=== PATIENT | female | born 1950 | race African-American/Black ===

== ENCOUNTER 2020-05-12 07:35 | Emergency (ER) | payer OTHER, MEDICAID ==
[~2020-05-12] VITALS: Ht 152.4 cm; Wt 104.8 kg
[2020-05-12 09:39] LABS: Eosinophils % (auto) 1.3 % (0.0-7.0); Lymphocytes % (auto) 28.6 % (10.0-50.0); Monocytes % (auto) 10.5 % (0.0-12.0); White Blood Cell 5.2 10^3/uL (4.4-10.8)
[2020-05-12 09:40] LABS: Basophils # (auto) 0 10 ^3/uL (0-0.2); Basophils % (auto) 0.6 % (0.0-2.0); Eosinophils # (auto) 0.1 10 ^3/uL (0-0.8); Hematocrit 37.5 % (36.0-46.0); Hemoglobin 12.2 g/dL (12.2-16.2); Lymphocytes # (auto) 1.5 10 ^3/uL (0.4-5.4); Mean Corpuscular Hemoglobin 30.2 pg (28.0-32.0); Mean Corpuscular Hgb Conc. 32.4 g/dL (32.0-36.0); Monocytes # (auto) 0.5 10 ^3/uL (0-1.3); Neutrophils # (auto) 3.1 10 ^3/uL (1.6-8.6); Nucleated Red Blood Cells % 0.1 %; Platelet Count (auto) 188 10^3/uL (140-450); Red Blood Cells 4.03 10^6/uL (4.0-5.20); Red Cell Distribution Width 13.9 % (11.8-14.3)
[2020-05-12] MEDS ORDERED: FUROSEMIDE 40 MG/4 ML VIAL IV ONE (09:45)
[2020-05-12 09:55] LABS: INR 0.97 (0.9-1.15); Partial Thromboplastin Time 24.4 sec (23.64-32.05)
[2020-05-12 09:59] LABS: Albumin 3.3 g/dL (3.4-5.0); Anion Gap 6 (5-15); Blood Urea Nitrogen 18 mg/dL (7-18); Carbon Dioxide 28 mmol/L (21-32); Chloride 106 mmol/L (98-107); Glucose 107 mg/dL (74-106); Sodium 140 mmol/L (136-145)
[2020-05-12 10:06] LABS: Alanine Aminotransferase 21 U/L (13-56); Alkaline Phosphatase 75 U/L (45-117); Aspartate Aminotransferase 14 U/L (15-37); BUN/Creatinine Ratio 17.8; Bilirubin, Total 0.3 mg/dL (0.2-1.0); GFR African American 70 mL/min; GFR Non-African American 58 mL/min; Total Protein 7.6 g/dL (6.4-8.2)
[2020-05-12 10:44] LABS: Urine Bacteria NONE SEEN /hpf (None Seen); Urine Blood Negative /uL (Negative); Urine Specific Gravity 1.017 (1.001-1.035); Urine WBC 11 /hpf (0 - 5)
[2020-05-13 02:00] VITALS: BP 126/69
[2020-05-13] MEDS ORDERED: MORPHINE SULF INJ 2 MG/ML SYRINGE 1ML IV ONE (02:00)
[2020-05-13] MEDS ORDERED: ONDANSETRON HCL 4 MG/2 ML VIAL IV ONE (02:00)
--- NOTE | 2020-05-13 16:08 | NUR ---
Assessment Patient is a 70-year-old female who is alert and oriented. Assessment was completed with patient over the phone [phone] who stated she was discharged prior to social service consult being set up. Patient informed me she will be staying with her family in [place]. Patient informed me she has a walker for home use. Patient verbalize understanding discharge order for home health. Regarding social service consult for home health safety evaluation and refer to CHF clinic. Faxed clinical information to [facility] and [facility] requesting authorization for agency. Per Tierney with [facility] patient has been accepted and service to start within 24-48hrs upon d/c day. Addendum: 05/13/20 at 1617 by MICHELLE VELA Amended: Links added.
== END 2020-05-13 02:36 | disposition home or self-care (01) ==
LOC: ER 07:35
DX: I50.9 Heart failure, unspecified (principal); N39.0 Urinary tract infection, site not specified; M79.89 Other specified soft tissue disorders; I25.2 Old myocardial infarction
CPT/HCPCS: 36415; 71046; 80053; 81001; 83880; 84484; 85025; 85610; 85730; 93005; 96374; 99285; J1940